=== PATIENT | female | born 1935 | race Hispanic/Latino ===

== ENCOUNTER 2020-11-11 13:45 | Inpatient (IN) | payer MEDICARE ==
[~2020-11-11] VITALS: Ht 137.2 cm; Wt 68.0 kg
[2020-11-11 13:55] VITALS: BP 125/52
[2020-11-11] MEDS ORDERED: CARB1TAB20 PO (14:01)
[2020-11-11] MEDS ORDERED: ASPI-1443 PO (14:02)
[2020-11-11] MEDS ORDERED: LISI40TA9 PO (14:02)
[2020-11-11] MEDS ORDERED: AMLO-257 PO (14:03)
[2020-11-11] MEDS ORDERED: DONE10TA43 PO (14:04)
[2020-11-11] MEDS ORDERED: ERGO400C PO (14:06)
[2020-11-11 14:46] LABS: CREATININE 1.5 mg/dL (0.5-1.5); POTASSIUM 4.3 mmol/L (3.5-5.1)
[2020-11-11 14:49] LABS: ALBUMIN 3.2 g/dL (3.5-5.0); TOTAL PROTEIN, SERUM 7.1 g/dL (6.0-8.3)
[2020-11-11 16:27] VITALS: BP 121/52
[2020-11-11 20:00] VITALS: BP 130/78
[2020-11-11] MEDS ORDERED: LEVETIRACETAM 500 MG/5 ML SD VIAL IV ONE (20:08)
[2020-11-11 20:44] LABS: BASOPHILS % (AUTO) 0.2 % (0.0-5.0); EOSINOPHILS % (AUTO) 0.4 % (0.0-8.0); HEMATOCRIT 34.5 % (36-48); LYMPHOCYTES % (AUTO) 12.4 % (21.0-51.0); MEAN CORPUSCULAR HEMOGLOBIN 29.2 pg (27.0-33.0); MEAN CORPUSCULAR VOLUME 88.2 fL (79-99); MONOCYTES % (AUTO) 4.6 % (3.0-13.0); NEUTROPHILS % (AUTO) 81.9 % (40.0-77.0); PLATELET COUNT (AUTO) 257 K/uL (130-400); RED BLOOD CELL COUNT(AUTO) 3.91 MIL/uL (4.00-5.50)
[2020-11-11 20:57] LABS: INR 0.99 (0.85-1.15); PROTHROMBIN TIME 10.8 SEC (9.6-11.6)
[2020-11-11 21:00] VITALS: BP 126/42
[2020-11-11 22:00] VITALS: BP 140/54
[2020-11-11] MEDS ORDERED: LEVETIRACETAM 1,000 MG in 0.9%NACL 100ML 100 ML IV SCH (22:00)
[2020-11-11] MEDS ORDERED: ACETAMINOPHEN 325 MG TAB PO PRN (22:30)
[2020-11-11] MEDS: 0.9%NACL 1000ML 1,000 ML IV SCH (22:30)
[2020-11-11] MEDS ORDERED: NITROGLYCERIN 0.4 MG SL TAB SL PRN (22:30)
[2020-11-11] MEDS ORDERED: LACTULOSE 20 GM/30 ML UDCUP PO PRN (22:30)
[2020-11-11] MEDS ORDERED: ONDANSETRON 4MG INJ IV PRN (22:30)
[2020-11-11] MEDS ORDERED: MORPHINE 2 MG SYG IVP PRN (23:00)
[2020-11-12] VITALS (7 sets, daily range): BP systolic 115–143; BP diastolic 37–64
[2020-11-12] MEDS: FAMOTIDINE 20MG VIAL IV SCH ×2 (09:49→19:58)
[2020-11-12] MEDS: LEVETIRACETAM 500 MG in 0.9%NACL 100ML 100 ML IV SCH ×2 (09:49→19:59)
[2020-11-12] MEDS: 0.9%NACL 1000ML 1,000 ML IV SCH (17:42)
[2020-11-13 00:33] VITALS: BP 126/64
[2020-11-13 04:11] VITALS: BP 118/58
[2020-11-13 07:30] VITALS: BP 130/56
[2020-11-13] MEDS: FAMOTIDINE 20MG VIAL IV SCH ×2 (08:21→20:16)
[2020-11-13] MEDS: LEVETIRACETAM 500 MG in 0.9%NACL 100ML 100 ML IV SCH ×2 (08:21→20:16)
[2020-11-13 11:00] VITALS: BP 118/56
[2020-11-13] MEDS: 0.9%NACL 1000ML 1,000 ML IV SCH (14:04)
[2020-11-13 15:30] VITALS: BP 133/61
[2020-11-13 20:00] VITALS: BP 120/54
[2020-11-14] VITALS: BP 155/65
[2020-11-14 01:05] VITALS: BP 120/77
[2020-11-14 04:00] VITALS: BP 150/69
[2020-11-14 08:28] VITALS: BP 144/60
[2020-11-14] MEDS: LEVETIRACETAM 500 MG in 0.9%NACL 100ML 100 ML IV SCH (10:29)
[2020-11-14] MEDS: 0.9%NACL 1000ML 1,000 ML IV SCH (10:49)
[2020-11-14] MEDS: FAMOTIDINE 20MG VIAL IV SCH (10:49)
== END 2020-11-14 14:00 | disposition hospice, home (50) | DRG 92 ==
LOC: EDH 13:45 → EDHIP 22:24 → OBSVTOIN 22:24 → 3DH 11-12 09:07
PROVIDERS: ADMIT Internal Medicine Critical Care Medicine; ATTEND Internal Medicine Critical Care Medicine
DX: G96.08 Other cranial cerebrospinal fluid leak (principal); E87.1 Hypo-osmolality and hyponatremia; N17.9 Acute kidney failure, unspecified; G40.409 Other generalized epilepsy and epileptic syndromes, not intractable, without status epilepticus; F02.80 Dementia in other diseases classified elsewhere, unspecified severity, without behavioral disturbance, psychotic disturbance, mood disturbance, and anxiety; G30.9 Alzheimer's disease, unspecified; G20 Parkinson's disease; R29.6 Repeated falls; R62.7 Adult failure to thrive; N18.9 Chronic kidney disease, unspecified; I12.9 Hypertensive chronic kidney disease with stage 1 through stage 4 chronic kidney disease, or unspecified chronic kidney disease; Z66 Do not resuscitate; Z51.5 Encounter for palliative care; Z68.36 Body mass index [BMI] 36.0-36.9, adult; Z91.81 History of falling; Z79.899 Other long term (current) drug therapy; Z20.822 Contact with and (suspected) exposure to COVID-19
CPT/HCPCS: 36415; 70450; 72125; 80053; 85025; 85610; 85730; 86850; 86900; 86901; 87635; 92610; C9803; G0378; J1953; J3490; J7030